=== PATIENT | male | born 1935 | race Caucasian/White ===

== ENCOUNTER 2019-06-13 | Emergency (ER) | payer MEDICARE ==
[2019-06-13 17:09] LABS: HEMATOCRIT 28.5 % (39.0-50.0); IMMATURE GRANULOCYTES 0.3 % (0.0-5.0); MEAN CELL VOLUME 93.4 fL CALC (80.0-100.0); MEAN CORPUSCULAR HGB 29.5 pG CALC (26.0-32.0); MEAN CORPUSCULAR HGB CONC 31.6 g/dL CAL (32.0-36.0); NEUT# 4.11 thou/uL (1.82-7.42); RED BLOOD COUNT 3.05 mill/uL (4.70-6.10); RED CELL DISTRI WIDTH 16.8 % (11.5-15.5)
[2019-06-13 17:27] LABS: ALBUMIN 3.6 g/dL (3.2-5.0); ALKALINE PHOSPHATASE 32 u/l (38-126); ANION GAP 9 (6-22 (CALC)); BILIRUBIN, TOTAL 0.7 mg/dL (0.0-1.4); BUN 27 mg/dL (8-23); BUN/CREATININE RATIO 21 (12-20 (CALC)); CARBON DIOXIDE 27 mmol/l (22-30); CHLORIDE 107 mmol/l (95-108); CREATININE 1.3 mg/dL (0.7-1.3); GFR 52 ML/MIN (>=60 (CALC)); GFR FOR AFR.AMER. > 60 ML/MIN (>=60 (CALC)); POTASSIUM 4.4 mmol/l (3.5-5.1); SGOT/AST 29 u/l (19-48); SODIUM 139 mmol/l (137-146); TOTAL PROTEIN 6.5 g/dL (6.3-8.2)
[2019-06-13 17:35] LABS: INTERNATIONAL NORMALIZED RATIO 3.4 RATIO (0.7-1.3); PROTHROMBIN TIME 33.7 SECONDS (9.0-12.5)
[2019-06-13 17:40] LABS: MYOGLOBIN 125 ng/mL (0 - 121)
[2019-06-13] MEDS ORDERED: ATORVASTATIN CA80 MG PO (21:39)
[2019-06-13] MEDS ORDERED: ASPIRIN81 MG PO (21:40)
[2019-06-13] MEDS ORDERED: METOPROL TAR25 MG PO (21:40)
[2019-06-13] MEDS ORDERED: CLOPIDOGREL75 MG PO (21:41)
[2019-06-13] MEDS ORDERED: FUROSEMIDE20 MG PO (21:41)
[2019-06-13] MEDS ORDERED: FINASTERIDE5 MG PO (21:42)
[2019-06-13] MEDS ORDERED: FENOFIBRATE145 MG PO (21:44)
[2019-06-13] MEDS ORDERED: ISOSORB MONO30 MG PO (21:44)
[2019-06-13] MEDS ORDERED: WARFARIN2 MG PO (21:45)
[2019-06-13] MEDS ORDERED: PROTONIX40 M2 PO (21:45)
[2019-06-13] MEDS ORDERED: COQ-10100 MG PO (21:46)
[2019-06-13] MEDS ORDERED: TERAZOSIN5 MG PO (21:46)
[2019-06-13] MEDS ORDERED: SPIRONOLACT25 MG PO (21:46)
== END 2019-06-13 18:45 | disposition home or self-care (01) ==
PROVIDERS: Emergency Medicine
DX: R60.0 Localized edema (principal); I11.0 Hypertensive heart disease with heart failure; I48.91 Unspecified atrial fibrillation

== ENCOUNTER 2020-06-13 | Emergency (ER) | payer OTHER, MEDICARE ==
[~2020-06-13] MED LIST: ASPIRIN81 MG PO; ATORVASTATIN CA80 MG PO; CLOPIDOGREL75 MG PO; COQ-10100 MG PO; FENOFIBRATE145 MG PO; FINASTERIDE5 MG PO; FUROSEMIDE20 MG PO; ISOSORB MONO30 MG PO; METOPROL TAR25 MG PO; PROTONIX40 M2 PO; SPIRONOLACT25 MG PO; TERAZOSIN5 MG PO; WARFARIN2 MG PO
[2020-06-14 01:02] LABS: HEMATOCRIT 33.4 % (39.0-50.0); HEMOGLOBIN 10.5 g/dl (14.0-18.0); IMMATURE GRANULOCYTES 0.3 % (0.0-5.0); MEAN CELL VOLUME 96.8 fL CALC (80.0-100.0); MEAN CORPUSCULAR HGB 30.4 pG CALC (26.0-32.0); MEAN CORPUSCULAR HGB CONC 31.4 g/dL CAL (32.0-36.0); NEUT# 7.04 thou/uL (1.82-7.42); RED BLOOD COUNT 3.45 mill/uL (4.70-6.10); RED CELL DISTRI WIDTH 16.1 % (11.5-15.5)
[2020-06-14 01:20] LABS: ALBUMIN 3.8 g/dL (3.2-5.0); ALKALINE PHOSPHATASE 32 u/l (38-126); ANION GAP 9 (6-22 (CALC)); BILIRUBIN, TOTAL 0.8 mg/dL (0.0-1.4); BUN 21 mg/dL (8-23); BUN/CREATININE RATIO 21 (12-20 (CALC)); CARBON DIOXIDE 27 mmol/l (22-30); CHLORIDE 106 mmol/l (95-108); GFR > 60 ML/MIN (>=60 (CALC)); GFR FOR AFR.AMER. > 60 ML/MIN (>=60 (CALC)); POTASSIUM 4.1 mmol/l (3.5-5.1); SGOT/AST 27 u/l (19-48); SODIUM 138 mmol/l (137-146); TOTAL PROTEIN 6.5 g/dL (6.3-8.2)
[2020-06-14 01:22] LABS: ACT PARTIAL THROMBO TIME 27.2 SECONDS (20.0-32.5); INTERNATIONAL NORMALIZED RATIO 1.9 RATIO (0.7-1.3); PROTHROMBIN TIME 19.5 SECONDS (9.0-12.5)
== END 2020-06-14 03:40 | DRG 184 ==
PROVIDERS: Emergency Medicine
DX: S22.42XA Multiple fractures of ribs, left side, initial encounter for closed fracture (principal); S27.0XXA Traumatic pneumothorax, initial encounter; I48.91 Unspecified atrial fibrillation; I11.0 Hypertensive heart disease with heart failure; I50.9 Heart failure, unspecified; E78.00 Pure hypercholesterolemia, unspecified; W10.8XXA Fall (on) (from) other stairs and steps, initial encounter; Y92.028 Other place in mobile home as the place of occurrence of the external cause